=== PATIENT | female | born 1990 | race Caucasian/White ===

== ENCOUNTER 2017-11-04 10:31 | Emergency (ER) | payer SELFPAY ==
[~2017-11-04] VITALS: Ht 185.4 cm; Wt 122.0 kg
[2017-11-04 10:46] VITALS: BP 144/83; PULSE 106; RESP 18; TEMP 97.8; O2SAT 100
[2017-11-04] MEDS ORDERED: SODIUM CHLOR 0.9% 1000 ML INJ 1,000 ML IV SCH (10:49)
--- NOTE | 2017-11-04 10:56 | PD ---
HPI Chief Complaint: Flank/Kidney Pain Time Seen by Provider: 10:45 Travel History International Travel<30 days: No Contact w/Intl Traveler<30days: No Traveled to known affect area: No History of Present Illness HPI 27 years old female complains of right flank pain. Patient states the pain started a week ago. Patient states the pain is severe sharp pain has been intermittent for the past week however get worse this morning. Patient denies any pain radiation. Patient denies any nausea vomiting. Patient denies any dysuria or frequency. Patient denies any vaginal discharge or bleeding. Patient denies any history kidney stone. On a scale of 1-10 the pain is a 10. PFSH Past Medical History Respiratory: Yes (ASTHMA ) Social History Tobacco Use: No Allergies-Medications (Allergen,Severity, Reaction): Coded Allergies: No Known Allergies (Verified Allergy, Unknown, 11/04/17) Reported Meds & Prescriptions Reported Meds & Active Scripts Active Robaxin (Methocarbamol) 750 Mg Tab 750 Mg PO QID Mobic (Meloxicam) 15 Mg Tab 15 Mg PO DAILY Review of Systems General / Constitutional: No: Fever Eyes: No: Visual changes HENT: No: Headaches Cardiovascular: No: Chest Pain or Discomfort Respiratory: No: Shortness of Breath Gastrointestinal: No: Abdominal Pain Genitourinary: No: Dysuria Musculoskeletal: No: Pain Skin: No Rash Neurologic: No: Weakness Psychiatric: No: Depression Endocrine: No: Polydipsia Hematologic/Lymphatic: No: Easy Bruising Physical Exam Narrative GENERAL: Well-nourished, well-developed patient. SKIN: Focused skin assessment warm/dry. HEAD: Normocephalic. EYES: No scleral icterus. No injection or drainage. NECK: Supple, trachea midline. No JVD or lymphadenopathy. CARDIOVASCULAR: Regular rate and rhythm without murmurs, gallops, or rubs. RESPIRATORY: Breath sounds equal bilaterally. No accessory muscle use. GASTROINTESTINAL: Abdomen soft, non-tender, nondistended. MUSCULOSKELETAL: No cyanosis, or edema. BACK: Patient has moderate tenderness on palpation right flank area, without obvious deformity. No CVA tenderness. Neurologic exam normal. Data Data Last Documented VS Vital Signs Date Time Temp Pulse Resp B/P (MAP) Pulse Ox O2 Delivery O2 Flow Rate FiO2 11/04/17 12:50 97.8 96 17 124/78 (93) 99 11/04/17 10:57 Room Air Orders Orders Complete Blood Count With Diff (11/04/17 10:49) Comprehensive Metabolic Panel (11/04/17 10:49) Lipase (11/04/17 10:49) Prothrombin Time / Inr (Pt) (11/04/17 10:49) Act Partial Throm Time (Ptt) (11/04/17 10:49) Urinalysis - C+S If Indicated (11/04/17 10:49) Ct Abd/Pel W/O Iv Contrast (11/04/17 10:49) Iv Access Insert/Monitor (11/04/17 10:49) Ecg Monitoring (11/04/17 10:49) Oximetry (11/04/17 10:49) Ondansetron Inj (Zofran Inj) (11/04/17 11:00) Sodium Chlor 0.9% 1000 Ml Inj (Ns 1000 M (11/04/17 10:49) Sodium Chloride 0.9% Flush (Ns Flush) (11/04/17 11:00) Famotidine Inj (Pepcid Inj) (11/04/17 11:00) Ketorolac Inj (Toradol Inj) (11/04/17 11:00) Ed Urine Pregnancytest Poc (11/04/17 10:49) Ed Discharge Order (11/04/17 12:39) Labs Laboratory Tests Test 11/04/17 10:55 White Blood Count 8.1 TH/MM3 Red Blood Count 4.66 MIL/MM3 Hemoglobin 14.8 GM/DL Hematocrit 41.0 % Mean Corpuscular Volume 88.1 FL Mean Corpuscular Hemoglobin 31.7 PG Mean Corpuscular Hemoglobin Concent 36.0 % Red Cell Distribution Width 13.5 % Platelet Count 243 TH/MM3 Mean Platelet Volume 9.7 FL Neutrophils (%) (Auto) 65.2 % Lymphocytes (%) (Auto) 25.9 % Monocytes (%) (Auto) 7.4 % Eosinophils (%) (Auto) 1.2 % Basophils (%) (Auto) 0.3 % Neutrophils # (Auto) 5.3 TH/MM3 Lymphocytes # (Auto) 2.1 TH/MM3 Monocytes # (Auto) 0.6 TH/MM3 Eosinophils # (Auto) 0.1 TH/MM3 Basophils # (Auto) 0.0 TH/MM3 CBC Comment AUTO DIFF Differential Comment AUTO DIFF CONFIRMED Platelet Estimate NORMAL Platelet Morphology Comment NORMAL Prothrombin Time 9.6 SEC Prothromb Time International Ratio 0.9 RATIO Activated Partial Thromboplast Time 27.7 SEC Urine Color YELLOW Urine Turbidity HAZY Urine pH 7.0 Urine Specific [place] 1.021 Urine Protein NEG mg/dL Urine Glucose (UA) NEG mg/dL Urine Ketones NEG mg/dL Urine Occult Blood NEG Urine Nitrite NEG Urine Bilirubin NEG Urine Urobilinogen LESS THAN 2.0 MG/DL Urine Leukocyte Esterase NEG Urine RBC LESS THAN 1 /hpf Urine WBC 3 /hpf Urine Squamous Epithelial Cells 12 /hpf Urine Bacteria RARE /hpf Urine Mucus FEW /lpf Microscopic Urinalysis Comment CULT NOT INDICATED Blood Urea Nitrogen 10 MG/DL Creatinine 0.69 MG/DL Random Glucose 99 MG/DL Total Protein 7.9 GM/DL Albumin 3.7 GM/DL Calcium Level 9.2 MG/DL Alkaline Phosphatase 46 U/L Aspartate Amino Transf (AST/SGOT) 27 U/L Alanine Aminotransferase (ALT/SGPT) 38 U/L Total Bilirubin 0.5 MG/DL Sodium Level 138 MEQ/L Potassium Level 4.6 MEQ/L Chloride Level 105 MEQ/L Carbon Dioxide Level 27.5 MEQ/L Anion Gap 6 MEQ/L Estimat Glomerular Filtration Rate 103 ML/MIN Lipase 84 U/L [facility] Medical Decision Making Medical Screen Exam Complete: Yes Emergency Medical Condition: Yes Interpretation(s) Last Impressions Abdomen/Pelvis CT 11/04/17 1049 Signed Impressions: Service Date/Time: Saturday, November 04, 2017 11:51 - CONCLUSION: No acute finding and specifically no renal calculi or obstructive uropathy. No free fluid. Roger Panchal MD 12:31 PM. CBC within normal limit. CMP within normal limit. UA negative. Differential Diagnosis Differential diagnosis including musculoskeletal, nephrolithiasis, pyelonephritis, colitis, cholecystitis. Narrative Course 27 years old female with right flank pain. Normal saline solution 1 25 cc an hour. Toradol 3 mg IV. Zofran 4 mg IV. Pepcid 20 mg IV. Diagnosis Primary Impression: Right flank pain Patient Instructions: General Instructions Additional Instructions: Moist heat. Take medications as needed for pain. Follow-up with personal physician and orthopedist if persistent problem. Med/Other Pt SpecificInfo: Prescription(s) given Scripts Methocarbamol (Robaxin) 750 Mg Tab 750 MG PO QID for Muscle Spasm, #60 TAB 0 Refills Prov: Franklin Willis MD 11/04/17 Meloxicam (Mobic) 15 Mg Tab 15 MG PO DAILY for Pain, #20 TAB 0 Refills Prov: Franklin Willis MD 11/04/17 Disposition: 01 DISCHARGE HOME Condition: Stable Franklin Willis MD Nov 04, 2017 10:56
[2017-11-04 10:57] VITALS: RESP 18; O2SAT 100
[2017-11-04] MEDS ORDERED: FAMOTIDINE 20 MG/2 ML VIAL IV PUSH ONE (11:00)
[2017-11-04] MEDS ORDERED: SODIUM CHLORIDE 0.9% FLUSH 10 ML FLUSH IV FLUSH PRN (11:00)
[2017-11-04] MEDS ORDERED: ONDANSETRON HCL 4 MG/2 ML VIAL IVP ONE (11:00)
[2017-11-04] MEDS ORDERED: KETOROLAC TROMETHAMINE 30 MG/ML (IVP) VIAL IVP ONE (11:00)
[2017-11-04 11:22] LABS: AUTOMATED NEUTROPHIL # 5.3 TH/MM3 (1.8-7.7); BASOPHIL % 0.3 % (0.0-2.0); EOSINOPHIL # 0.1 TH/MM3 (0-0.4); EOSINOPHIL % 1.2 % (0.0-4.0); HEMOGLOBIN 14.8 GM/DL (11.6-15.3); LYMPH % 25.9 % (9.0-44.0); LYMPHOCYTE # 2.1 TH/MM3 (1.0-4.8); MEAN CELL VOLUME 88.1 FL (80.0-100.0); MEAN CORPUSCULAR HEMOGLOBIN 31.7 PG (27.0-34.0); MEAN PLATELET VOLUME 9.7 FL (7.0-11.0); MONO % 7.4 % (0.0-8.0); MONOCYTE # 0.6 TH/MM3 (0-0.9); NEUT % 65.2 % (16.0-70.0); PLATELET COUNT 243 TH/MM3 (150-450); RED BLOOD COUNT 4.66 MIL/MM3 (4.00-5.30); RED CELL DISTRIBUTION WIDTH 13.5 % (11.6-17.2); WHITE BLOOD COUNT 8.1 TH/MM3 (4.0-11.0)
[2017-11-04 11:29] LABS: BACTERIA, URINE RARE /hpf; BILIRUBIN, URINE NEG (NEG); BLOOD, URINE NEG (NEG); GLUCOSE,URINE NEG (NEG); KETONE, URINE NEG (NEG); MUCUS URINE FEW /lpf (OCC); NITRITE,URINE NEG (NEG); SQUAMOUS EPITHELIAL CELL URINE 12 /hpf (0-5); URINE COLOR YELLOW (YELLW/STRAW); URINE LEUKOCYTE ESTERASE NEG (NEG)
[2017-11-04 11:39] LABS: INTERNATIONAL NORMALIZED RATIO 0.9 RATIO; PROTHROMBIN TIME - PATIENT 9.6 SEC (9.8-11.6)
[2017-11-04 11:40] LABS: ALBUMIN 3.7 GM/DL (3.4-5.0); ALT (GPT) 38 U/L (10-53); AST (GOT) 27 U/L (15-37); BICARBONATE 27.5 MEQ/L (21.0-32.0); BLOOD UREA NITROGEN 10 MG/DL (7-18); CALCIUM 9.2 MG/DL (8.5-10.1); CHLORIDE 105 MEQ/L (98-107); CREATININE 0.69 MG/DL (0.50-1.00); GLOMERULAR FILTRATION RATE 103 ML/MIN (>89); GLUCOSE,RANDOM 99 MG/DL (74-106); LIPASE 84 U/L (73-393); SODIUM (NA) 138 MEQ/L (136-145)
[2017-11-04 11:41] LABS: ALKALINE PHOSPHATASE 46 U/L (45-117); TOTAL BILIRUBIN ADULT 0.5 MG/DL (0.2-1.0); TOTAL PROTEIN 7.9 GM/DL (6.4-8.2)
[2017-11-04 12:02] VITALS: RESP 17
--- NOTE | 2017-11-04 12:16 | RADRPT ---
EXAM DATE/TIME: 11/04/2017 11:51 [facility] COMPARISON: No previous studies available for comparison. INDICATIONS : Right flank pain. ORAL CONTRAST: No oral contrast ingested. RADIATION DOSE: 29.42 CTDIvol (mGy) ; Patient body habitus MEDICAL HISTORY : Asthma SURGICAL HISTORY : None. ENCOUNTER: Initial ACUITY: 1 week PAIN SCALE: 8/10 LOCATION: Right flank worse today TECHNIQUE: Volumetric scanning of the abdomen and pelvis was performed. Using automated exposure control and ad justment of the mA and/or kV according to patient size, radiation dose was kept as low as reasonably achievable to obtain optimal diagnostic quality images. DICOM format image data is available electro nically for review and comparison. FINDINGS: LOWER LUNGS: The visualized lower lungs are clear. LIVER: Homogeneous density without lesion. There is no dilation of the biliary tree. No calcified gallston es. SPLEEN: Normal size without lesion. PANCREAS: Within normal limits. KIDNEYS: Normal in size and shape. There is no mass, stone, or hydronephrosis. ADRENAL GLANDS: Within normal limits. VASCULAR: There is no aortic aneurysm. BOWEL/MESENTERY: The stomach, small bowel, and colon demonstrate no acute abnormality. There is no free intraperitone al air or fluid. ABDOMINAL WALL: Within normal limits. RETROPERITONEUM: There is no lymphadenopathy. BLADDER: No wall thickening or mass. REPRODUCTIVE: Within normal limits. INGUINAL: There is no lymphadenopathy or hernia. MUSCULOSKELETAL: Within normal limits for patient age. CONCLUSION: No acute finding and specifically no renal calculi or obstructive uropathy. No free fluid. Roger Panchal MD on November 04, 2017 at 12:10 Board Certified Radiologist. This report was verified electronically.
[2017-11-04] MEDS ORDERED: ROBA750T PO (12:39)
[2017-11-04] MEDS ORDERED: MOBI15TA PO (12:39)
[2017-11-04 12:50] VITALS: BP 124/78; TEMP 97.8
== END 2017-11-04 12:50 | disposition home or self-care (01) ==
LOC: NEPE 10:31
DX: R10.9 Unspecified abdominal pain (principal)
CPT/HCPCS: 74176; 80053; 81001; 83690; 84703; 85025; 85610; 85730; 96361; 96374; 96375; 99285; J1885; J2405; J7030